=== PATIENT | male | born 1965 | race Two or more races ===

== ENCOUNTER 2024-03-03 13:32 | Emergency (ER) | payer MEDICAID, OTHER ==
[~2024-03-03] VITALS: Ht 177.8 cm; Wt 86.6 kg
--- NOTE | 2024-03-03 13:47 | ED.PDOC ---
History of Present Illness HPI Comments 58Y M with PMHx HTN presents to ED via EMS for chief complaint dizziness [id number]. Additional symptoms include headache and vomiting. Pt has been having headaches for 3wks. Pt states he has HTN medication at home but stopped taking it in 2023. Pt denies diarrhea, chest pain, and SOB. Pt described dizziness as "the room spinning. BS with EMS 135. No known allergies. Chief Complaint: Dizziness Time Seen by MD: 13:36 Reviewed Notes: Medications, Allergies Allergies: Coded Allergies: NO KNOWN ALLERGIES (Unverified , 03/03/24) Information Source: Patient, Emergency Med Personnel Mode of Arrival: EMS Severity: Moderate Timing: Minutes Duration: Since onset Past Medical History PAST MEDICAL HISTORY: HTN Surgical History: Denies all surgeries Family History Family History: Unknown Social History Smoker: Non-Smoker Alcohol: Denies ETOH Use Drugs: Denies Drug Use Lives In: Home Constitutional: denies: chills, diaphoresis, fatigue, fever, malaise, sweats, weakness, others EENTM: denies: blurred vision, double vision, ear bleeding, ear discharge, ear drainage, ear pain, ear ringing, eye pain, eye redness, hearing loss, mouth pain, mouth swelling, nasal discharge, nose bleeding, nose congestion, nose pain, photophobia, tearing, throat pain, throat swelling, voice changes, others Respiratory: denies: cough, hemoptysis, orthopnea, SOB at rest, shortness of breath, SOB with excertion, stridor, wheezing, others Cardiovascular: denies: chest pain, dizzy spells, diaphoresis, Dyspnea on exertion, edema, irregular heart beat, left arm pain, lightheadedness, palpitations, PND, syncope, others Gastrointestinal: reports: vomiting; denies: abdomen distended, abdominal pain, blood streaked bowels, constipated, diarrhea, dysphagia, difficulty swallowing, hematemesis, melena, nausea, poor appetite, poor fluid intake, rectal bleeding, rectal pain, others Genitourinary: denies: burning, dysuria, flank pain, frequency, hematuria, incontinence, penile discharge, penile sore, pain, testicle pain, testicle swelling, urgency, others Neurological: reports: dizziness, headache; denies: fainting, left sided numbness, left sided weakness, numbness, paresthesia, pre-existing deficit, right sided numbness, right sided weakness, seizure, speech problems, tingling, tremors, weakness, others Musculoskeletal: denies: back pain, gout, joint pain, joint swelling, muscle pain, muscle stiffness, neck pain, others Integumetry: denies: bruises, change in color, change in hair/nails, dryness, laceration, lesions, lumps, rash, wounds, others Allergic/Immunocompromised: denies: Difficulty Healing, Frequent Infections, Hives, Itching, others Hematologic/Lymphatic: denies: anemia, blood clots, easy bleeding, easy bruising, swollen glands, others Endocrine: denies: excessive hunger, excessive sweating, excessive thirst, excessive urination, flushing, intolerance to cold, intolerance to heat, unexplained weight gain, unexplained weight loss, others Psychiatric: denies: anxiety, bipolar disorder, depression, hopeless, panic disorder, schizophrenia, sleepless, suicidal, others All Other Systems: Reviewed and Negative Physical Exam General Appearance: No Apparent Distress, Normal HEENT: Normal ENT Inspection, Pharynx Normal, TMs Normal Neck: Full Range of Motion, Non-Tender, Normal, Normal Inspection Respiratory: Chest Non-Tender, Lungs Clear, No Accessory Muscle Use, No Respiratory Distress, Normal Breath Sounds Cardiovascular: No Edema, No JVD, No Murmur, No Gallop, Normal Peripheral Pulses, Regular Rate/Rhythm Breast Exam: Deferred Gastrointestinal: No Organomegaly, Non Tender, No Pulsatile Mass, Normal Bowel Sounds, Soft Genitalia: Deferred Pelvic: Deferred Rectal: Deferred Extremities: No calf tenderness, Normal capillary refill, Normal inspection, N ormal range of motion, Non-tender, No pedal edema Musculoskeletal : Apperance: Normal Neurologic: Alert, materials assistant II-XII nml as Tested, No Motor Deficits, Normal Affect, Normal Mood, No Sensory Deficits Cerebellar Function: NOT DONE Reflexes: NOT DONE Skin: Dry, Normal Color, Warm Lymphatic: No Adenopathy Was a procedure done? Was a procedure done?: No Differential Dx Considerations may include: CVA, posterior circulation stroke, vertigo, ACS, electrolyte abnormality X-Ray, Labs, Meds, VS Vital Signs Date Time Temp Pulse Resp B/P (MAP) Pulse Ox O2 Delivery O2 Flow Rate FiO2 03/03/24 16:10 86 16 97 Room Air* 0 21 03/03/24 15:55 97.7 89 18 155/97 (116) 96 97.7 03/03/24 13:45 61 03/03/24 13:40 97.9 60 16 161/92 (115) 96 Lab Test 03/03/24 15:50 03/03/24 14:15 Range/Units Troponin I High Sensitivity 3 L 4 </=54 ng/L White Blood Count 9.8 4.4-10.8 10^3/uL Red Blood Count 5.31 4.5-5.90 10^6/uL Hemoglobin 12.2 L 13.5-17.5 g/dL Hematocrit 38.8 L 41.0-53.0 % Mean Corpuscular Volume 73.1 L 80.0-100.0 fL Mean Corpuscular Hemoglobin 23.0 L 28.0-32.0 pg Mean Corpuscular Hemoglobin Concent 31.5 L 32.0-36.0 g/dL Red Cell Distribution Width 16.4 H 11.8-14.3 % Platelet Count 413 140-450 10^3/uL Mean Platelet Volume 7.5 6.9-10.8 fL Neutrophils (%) (Auto) 77.2 37.0-80.0 % Lymphocytes (%) (Auto) 13.7 10.0-50.0 % Monocytes (%) (Auto) 7.7 0.0-12.0 % Eosinophils (%) (Auto) 1.0 0.0-7.0 % Basophils (%) (Auto) 0.4 0.0-2.0 % Neutrophils # (Auto) 7.6 1.6-8.6 10 ^3/uL Lymphocytes # (Auto) 1.3 0.4-5.4 10 ^3/uL Monocytes # (Auto) 0.8 0-1.3 10 ^3/uL Eosinophils # (Auto) 0.1 0-0.8 10 ^3/uL Basophils # (Auto) 0 0-0.2 10 ^3/uL Nucleated Red Blood Cells 0.0 % Sodium Level 137 136-145 mmol/L Potassium Level 3.6 3.5-5.1 mmol/L Chloride Level 103 98-107 mmol/L Carbon Dioxide Level 24 20-31 mmol/L Anion Gap 10 5-15 Blood Urea Nitrogen 14 9-23 mg/dL Creatinine 0.90 0.700-1.30 mg/dL Glomerular Filtration Rate Calc 100 >90 mL/min BUN/Creatinine Ratio 15.6 10.0-20.0 Serum Glucose 101 74-106 mg/dL Calcium Level 9.9 8.7-10.4 mg/dL Current Medications Medications (Trade) Dose Ordered Sig/Ej Route Start Time Stop Time Status Last Admin Sodium Chloride 1,000 ml @ 1,000 mls/hr Q1H ONCE IV 03/03/24 14:00 03/03/24 14:59 DC 03/03/24 16:06 Metoclopramide HCl (Reglan Injection) 10 mg ONCE ONCE IV 03/03/24 14:00 03/03/24 14:01 DC 03/03/24 16:[address] [address] Ph: [phone] DIAGNOSTIC IMAGING Diagnostic Imaging Report : [id number] Signed PATIENT: LETICIA CLEMENTE ACCT: [id number] UNIT: [id number] : 1965 LOC: ER ROOM / BED: / AGE / SEX: 58 / M ADM STATUS: REG ER SERVICE 1349 ORDERING PHYSICIAN: GUY WING MD PROCEDURE(s): CXRP - CHEST PORTABLE REASON: dizziness ORDER NUMBER(s): [id number], ACCESSION NUMBER(s): [id number] CHEST RADIOGRAPH Indication: dizziness Technique: Single frontal view of the chest was obtained Comparison: None FINDINGS: Lines and Tubes: None Lungs: No focal consolidation. Pleura: No effusion. No pneumothorax. Cardiomediastinal contours: Unremarkable cardiac lucency which may represent a hiatal hernia. Bones: No acute osseous abnormality. IMPRESSION: No acute cardiopulmonary disease. Retrocardiac lucency which may represent a hiatal hernia. Recommend clinical correlation. ATED BY: SHIRA STERLING DO DICTATED DATE/TIME: 03/03/241458 SIGNED BY: SHIRA STERLING DO SIGNED DATE/TIME: 03/03/24 145 CC: [address] [address] Ph: [phone] DIAGNOSTIC IMAGING Diagnostic Imaging Report : [id number] Signed PATIENT: LETICIA CLEMENTE ACCT: [id number] UNIT: [id number] : 1965 LOC: ER ROOM / BED: / AGE / SEX: 58 / M ADM STATUS: REG ER SERVICE 1349 ORDERING PHYSICIAN: GUY WING MD PROCEDURE(s): HWOCT - HEAD WITHOUT CONTRAST REASON: dizziness ORDER NUMBER(s): [id number], ACCESSION NUMBER(s): [id number] EXAM: CT HEAD WITHOUT CONTRAST INDICATION: dizziness TECHNIQUE: CT of the head without intravenous contrast. Radiation Dose Information: CT Dose: CTDI volume is 53.94 mGy. Dose-length product is 1082.25 mGy*cm The dose indicators for CT are the volume Computed Tomography (CT) Dose Index (CTDIvol) and the Dose Length Product (DLP), and are measured in units of mGy and mGy-cm, respectively. These indicators are not patient dose, but values generated from the CT scanner acquisition factors. The report includes radiation exposure data for exposures received during this examination. COMPARISON: None FINDINGS: There is no evidence of acute intracranial hemorrhage, extra-axial collection, mass effect, midline shift, herniation or hydrocephalus. The ventricles, sulci and cisterns are age appropriate. The matos-white differentiation is intact. Patchy periventricular and subcortical white matter hypoattenuation is nonspecific but may be related to small vessel ischemic disease. Small inclusion cysts left maxillary sinus and mastoid air cells are clear. The surrounding soft tissues and osseous structures are unremarkable. IMPRESSION: 1. No acute intracranial hemorrhage. 2. CT findings of territorial ischemia. ATED BY: MARTINA MAHAN Jr., DO DICTATED DATE/TIME: 03/03/241439 SIGNED BY: MARTINA MAHAN Jr., SIGNED DATE/TIME: 03/03/241439 CC: Time of 1ST Reevaluation: 14:06 Reevaluation 1ST: Unchanged Patient Education/Counseling: Diagnosis, Treatment Family Education/Counseling: No Family Present Departure 1 Departure Time of Disposition: 17:39 (Patient with signs concerning for vertigo versus CVA. Labs are benign. CT brain is concerning for territorial ischemia. Consulted Neurology and we will admit patient for MRI and further workup. Unfortunately patient is out of the window of tPA.) Impression: Primary Impression: Dizziness Additional Impression: Abnormal head CT Disposition: ADMITTED INPATIENT Admit to: Med Surg Condition: Guarded Critical Care Note Critical Care Time?: Yes Critical care comment: Concern for CVA Authorized and Performed by: Guy Wing MD Total critical care time: Approximately 32 minutes Due to a high probability of clinically significant, life threatening deterioration, the patient required my highest level of preparedness to intervene emergently and I personally spent this critical care time directly and personally managing the patient. This critical care time included obtaining a history; examining the patient; pulse oximetry; ordering and review of studies; arranging urgent treatment with development of a management plan; evaluation of patient's response to treatment; frequent reassessment; and, discussions with other providers. This critical care time was performed to assess and manage the high probability of imminent, life-threatening deterioration that could result in multi-organ failure. It was exclusive of separately billable procedures and treating other patients and teaching time. Please see my other sections and the rest of the note for further information on patient assessment and treatment. Stability Stability form required: No I personally scribed for GUY WING MD ([facility] on 03/03/24 at 13:47. Electronically submitted by Mara Galvan ([facility]). I personally scribed for GUY WING MD ([email or web address]) on 03/03/24 at 16:27. Electronically submitted by Mara Galvan ([facility]). GUY WING MD Mar 03, 2024 13:47
[2024-03-03 14:38] LABS: Basophils # (auto) 0 10 ^3/uL (0-0.2); Eosinophils # (auto) 0.1 10 ^3/uL (0-0.8); Hemoglobin 12.2 g/dL (13.5-17.5); Monocytes # (auto) 0.8 10 ^3/uL (0-1.3)
[2024-03-03 14:40] LABS: Basophils % (auto) 0.4 % (0.0-2.0); Hematocrit 38.8 % (41.0-53.0); Lymphocytes # (auto) 1.3 10 ^3/uL (0.4-5.4); Lymphocytes % (auto) 13.7 % (10.0-50.0); Mean Corpuscular Hgb Conc. 31.5 g/dL (32.0-36.0); Mean Corpuscular Volume 73.1 fL (80.0-100.0); Monocytes % (auto) 7.7 % (0.0-12.0); Neutrophils # (auto) 7.6 10 ^3/uL (1.6-8.6); Neutrophils % (auto) 77.2 % (37.0-80.0); Platelet Count (auto) 413 10^3/uL (140-450); Red Blood Cells 5.31 10^6/uL (4.5-5.90); Red Cell Distribution Width 16.4 % (11.8-14.3); White Blood Cell 9.8 10^3/uL (4.4-10.8)
--- NOTE | 2024-03-03 14:42 | DVH ---
EXAM: CT HEAD WITHOUT CONTRAST INDICATION: dizziness TECHNIQUE: CT of the head without intravenous contrast. Radiation Dose Information: CT Dose: CTDI volume is 53.94 mGy. Dose-length product is 1082.25 mGy*cm The dose indicators for CT are the volume Computed Tomography (CT) Dose Index (CTDIvol) and the Dose Length Product (DLP), and are measured in units of mGy and mGy-cm, respectively. These indicators are not patient dose, but values generated from the CT scanner acquisition factors. The report includes radiation exposure data for exposures received during this examination. COMPARISON: None FINDINGS: There is no evidence of acute intracranial hemorrhage, extra-axial collection, mass effect, midline s hift, herniation or hydrocephalus. The ventricles, sulci and cisterns are age appropriate. The matos-white differentiation is intact. Patchy periventricular and subcortical white matter hypoattenuation is nonspecific but may be related to small vessel ischemic disease. Small inclusion cysts left maxillary sinus and mastoid air cells are clear. The surrounding soft tissues and osseous structures are unremarkable. IMPRESSION: 1. No acute intracranial hemorrhage. 2. CT findings of territorial ischemia.
[2024-03-03 14:46] LABS: Chloride 103 mmol/L (98-107); Potassium 3.6 mmol/L (3.5-5.1); Sodium 137 mmol/L (136-145)
[2024-03-03 14:47] LABS: Anion Gap 10 (5-15); Calcium 9.9 mg/dL (8.7-10.4); Carbon Dioxide 24 mmol/L (20-31)
[2024-03-03 14:52] LABS: BUN/Creatinine Ratio 15.6 (10.0-20.0); Blood Urea Nitrogen 14 mg/dL (9-23); Glucose 101 mg/dL (74-106)
--- NOTE | 2024-03-03 15:01 | DVH ---
CHEST RADIOGRAPH Indication: dizziness Technique: Single frontal view of the chest was obtained Comparison: None FINDINGS: Lines and Tubes: None Lungs: No focal consolidation. Pleura: No effusion. No pneumothorax. Cardiomediastinal contours: Unremarkable cardiac lucency which may represent a hiatal hernia. Bones: No acute osseous abnormality. IMPRESSION: No acute cardiopulmonary disease. Retrocardiac lucency which may represent a hiatal hernia. Recommend clinical correlation.
[2024-03-03] MEDS: SODIUM CHLORIDE 0.9% 1,000 ML IV ONE (16:06)
[2024-03-03] MEDS: METOCLOPRAMIDE HCL 5MG/ml INJ 2ml VIAL IV ONE (16:06)
[2024-03-03 16:10] VITALS: PULSE 86; RESP 16; O2SAT 97
[2024-03-03 17:20] VITALS: PULSE 60; RESP 18; O2SAT 98
[2024-03-03] MEDS ORDERED: ONDANSETRON HCL 4 MG/2 ML VIAL IV PRN (18:00)
[2024-03-03] MEDS ORDERED: ZOLPIDEM TARTRATE 5 MG TAB PO PRN (18:00)
[2024-03-03] MEDS ORDERED: MECLIZINE HCL 25 MG TAB PO PRN (18:00)
[2024-03-03] MEDS ORDERED: LORazepam 0.5 MG TAB PO PRN (18:00)
[2024-03-03] MEDS ORDERED: ACETAMINOPHEN 325 MG TAB PO PRN (18:00)
--- NOTE | 2024-03-03 18:01 | DVHHP2 ---
History of Present Illness Reason for Visit: Dizziness History of Present Illness 58-year-old obese patient with a past medical history of hypertension comes to the ED with complaints of dizziness patient states that the symptoms include headache nausea vomiting patient has been having headaches for the past 3 weeks states that he normally takes medication to manage his blood pressure but has not taken the medication since November patient describes the dizziness as the room spinning initial evaluation in the ED involved CT scan evaluation patient was recommended for admission further evaluation as per ED Cardiovascular: HTN COBBLER SOLE: Vertigo Review of Systems Constitutional: Yes: Weakness; No: Fever, Chills, Sweats, Malaise, Other Eyes: No: Pain, Vision change, Conjunctivae inflammation, Eyelid inflammation, Other, Redness ENT: No: Ear pain, Ear discharge, Nose pain, Nose discharge, Nose congestion, Mouth pain, Mouth swelling, Throat pain, Throat swelling, Other Respiratory: No: Cough, Dry, Shortness of breath, SOB with excertion, Wheezing, Hemoptysis, Pleuritic Pain, Sputum, Wheezing, Other Cardiovascular: No: Chest Pain, Palpitations, Orthopnea, Paroxysmal Noc. Dyspnea, Edema, Lt Headedness, Other Gastrointestinal: No: Nausea, Vomiting, Abdominal Pain, Diarrhea, Constipation, Melena, Hematochezia, Other Genitourinary: No Dysuria, No Frequency, No Incontinence, No Hematuria, No Retention, No Other Musculoskeletal: No: other, neck pain, shoulder pain, arm pain, back pain, hand pain, leg pain, foot pain Skin: No: Rash, Lesions, Jaundice, Bruising, Other Neurological: Weakness, Incoordination; No: Numbness, Change in speech, Confusion, Seizures, Other Allergies: Coded Allergies: NO KNOWN ALLERGIES (Unverified , 03/03/24) Exam Vital Signs Vital Signs Date Time Temp Pulse Resp B/P (MAP) Pulse Ox O2 Delivery O2 Flow Rate FiO2 03/03/24 17:20 97.9 60 18 177/89 (118) 98 97.9 03/03/24 17:20 Room Air* 0 21 General Appearance: Alert, Oriented X3, Cooperative, mild distress HEENT: Atraumatic, PERRLA Respiratory: Clear to auscultation Cardiovascular: Regular rate, Normal S1, Normal S2 Abdominal: Normal bowel sounds, Soft, No tenderness Extremities: No clubbing, No cyanosis Skin: No rashes, No breakdown Neuro: Normal gait, Normal speech Psych/Mental Status: Mood NL Labs/Xrays Labs Test 03/03/24 15:50 03/03/24 14:15 Range/Units Troponin I High Sensitivity 3 L </=54 ng/L White Blood Count 9.8 4.4-10.8 10^3/uL Red Blood Count 5.31 4.5-5.90 10^6/uL Hemoglobin 12.2 L 13.5-17.5 g/dL Hematocrit 38.8 L 41.0-53.0 % Mean Corpuscular Volume 73.1 L 80.0-100.0 fL Mean Corpuscular Hemoglobin 23.0 L 28.0-32.0 pg Mean Corpuscular Hemoglobin Concent 31.5 L 32.0-36.0 g/dL Red Cell Distribution Width 16.4 H 11.8-14.3 % Platelet Count 413 140-450 10^3/uL Mean Platelet Volume 7.5 6.9-10.8 fL Neutrophils (%) (Auto) 77.2 37.0-80.0 % Lymphocytes (%) (Auto) 13.7 10.0-50.0 % Monocytes (%) (Auto) 7.7 0.0-12.0 % Eosinophils (%) (Auto) 1.0 0.0-7.0 % Basophils (%) (Auto) 0.4 0.0-2.0 % Neutrophils # (Auto) 7.6 1.6-8.6 10 ^3/uL Lymphocytes # (Auto) 1.3 0.4-5.4 10 ^3/uL Monocytes # (Auto) 0.8 0-1.3 10 ^3/uL Eosinophils # (Auto) 0.1 0-0.8 10 ^3/uL Basophils # (Auto) 0 0-0.2 10 ^3/uL Nucleated Red Blood Cells 0.0 % Sodium Level 137 136-145 mmol/L Potassium Level 3.6 3.5-5.1 mmol/L Chloride Level 103 98-107 mmol/L Carbon Dioxide Level 24 20-31 mmol/L Anion Gap 10 5-15 Blood Urea Nitrogen 14 9-23 mg/dL Creatinine 0.90 0.700-1.30 mg/dL Glomerular Filtration Rate Calc 100 >90 mL/min BUN/Creatinine Ratio 15.6 10.0-20.0 Serum Glucose 101 74-106 mg/dL Calcium Level 9.9 8.7-10.4 mg/dL Assessment/Plan Assessment/Plan Admit [facility] Dizziness possibly secondary to hypertensive urgency CT scan shows chronic versus subacute changes possible MRI required Inpatient evaluation for suspected TIA versus subacute stroke Patient with vertigo IV hydration Vertigo management with meclizine p.r.n. t.i.d. P.r.n. medication for management of blood pressure including hydralazine q.6 Neurology consult or evaluation based on inpatient Physicians preference Plan discussed with: Patient My Orders Orders - MAXINE SCHWARZ MD Procedure Category Date Status Time Meclizine Tablet PHA 03/03/24 Verified (Antivert Tablet) 18:00 Hydralazine Hcl PHA 03/03/24 Verified Tablet (Apresoline 18:00 Drug Screen LAB 03/03/24 Verified 17:49 Admit ADMIT 03/03/24 Verified 17:49 Code Status CODE 03/03/24 Verified 17:49 Cardiac DIET 03/03/24 Verified Diet-2gna,Lofat,Lochol Dinner 0.9%Ns 1000 Ml PHA 03/03/24 Verified 18:00 Aspirin Tablet PHA 03/04/24 Verified 10:00 Clopidogrel Bisulfate PHA 03/04/24 Verified (Plavix) 10:00 Lipitor 40mg Hs PHA 03/03/24 Verified Hi-Intensity 22:00 Carvedilol Tablet PHA 03/03/24 Verified (Coreg Tablet) 22:00 Acetaminophen Tablet PHA 03/03/24 Verified (Tylenol Tablet) 18:00 Zolpidem Tartrate PHA 03/03/24 Verified (Ambien) 18:00 Lorazepam Tablet PHA 03/03/24 Verified (Ativan Tablet) 18:00 Docusate Sodium PHA 03/04/24 Verified Capsule (Colace 10:00 Complete Blood Count LAB 03/04/24 Verified 04:00 Basic Metabolic Panel LAB 03/04/24 Verified 04:00 Ondansetron Hcl PHA 03/03/24 Verified (Zofran) 18:00 Electrocardigram EKG 03/03/24 Verified 17:49 Alum & Mag PHA 03/03/24 Verified Hydrox-Simethicone 18:00 Troponin-I Hs LAB 03/03/24 Verified 17:49 Lisinopril Tablet PHA 03/04/24 Verified (Zestril Tablet) 10:00 Cardiac PITA 03/03/24 Verified Rehabilitation - Outpa Notify Md Of Changes PITA 03/03/24 Verified From Base 17:49 Oxygen By Nasal RT 03/03/24 Verified Cannula 17:49 Problem List: (1) TIA (transient ischemic attack) (2) Dizziness (3) Abnormal head CT Date of Service: Mar 03, 2024 Billing Provider: MAXINE SCHWARZ MD Common Visit Codes: [id number] INP/OBS CARE (HIGH) MAXINE SCHWARZ MD Mar 03, 2024 18:01
--- NOTE | 2024-03-03 18:56 | ECG ---
[facility] Test Date: 2024-03-03 Test Time: 13:45:30 Pat Name: LETICIA CLEMENTE Department: ER Room: [address] [place] [address] A Gender: M Cardiac Rn: TAI : 1965 Requested By: GUY WING Order Number: [id number] Reading MD: Eric Meza Measurements Intervals [place] Rate: 61 P: 63 SC: 235 QRS: 36 QRSD: 88 T: 113 QT: 419 QTc: 422 Interpretive Statements Sinus rhythm Prolonged SC interval Nonspecific T abnormalities, lateral leads Electronically Signed On 03-06-2024 16:11:51 PST by Eric Meza Please click the below link to view image of tracing.
--- NOTE | 2024-03-03 19:44 | BSKYNEURO ---
[place] [facility] Note # Demographics Consult Type: Acute Stroke Level 2 (4.5-24 hrs) Patient Location: Emergency Room First Name: LETICIA Last Name: CHYNA Date of : 1965 Age: 58 Gender: Male Facility: [facility] Time of Initial Page (): 03/03/2024, 17:11 Time of Return Call (): 03/03/2024, 17:11 # HPI History: 58 y.o M with Hx of HTN presents with N/V and vertigo with onset at 12PM today. # Scores Time of exam and NIHSS (): 03/03/2024, 18:46 Level of Consciousness 1a: [0] = Alert; keenly responsive LOC Questions 1b: [0] = Answers both questions correctly LOC Commands 1c: [0] = Performs both tasks correctly Best Gaze 2: [0] = Normal Visual 3: [0] = No visual loss Facial Palsy 4: [0] = Normal symmetrical movements Motor Arm Left 5a: [0] = No drift Motor Arm Right 5b: [0] = No drift Motor Leg Left 6a: [0] = No drift Motor Leg Right 6b: [0] = No drift Limb Ataxia 7: [0] = Absent Sensory 8: [0] = Normal Best Language 9: [0] = No aphasia Dysarthria 10: [0] = Normal Extinction and Inattention 11: [0] = No abnormality NIHSS Total: 0 # Data Head CT: negative for acute changes # Assessment Impression: - Vertigo # Plan Thrombolytic/Intervention: NOT IV Thrombolysis or IA Intervention candidate Thrombolytic Exclusion: - > 4.5 hours NIHSS 0 Intraarterial Exclusion: - clinical exam not consistent with presence of large vessel occlusion (LVO), can reconsider if LVO found on vascular imaging Target Blood Pressure: SBP < 180 Labs: - lipid panel Imaging: (urgency: routine): - CT Angiogram Head and CT Angiogram Neck AND call back with results if abnormal - MRI Brain without contrast Therapy/Evaluation: - PT/OT evaluation Medication: meclizine 25mg TID PRN vertigo zofran 4mg TID PRN nausea Other: - If patient has any neurological deterioration please call me back immediately - would not pursue stroke work-up if MRI is negative # Logistics Attestation of consult completion: The patient is located at: [facility]. Facility staff participated in the visit. I performed this telemedicine visit from my offsite office utilizing interactive 2 way audio and visual telecommunication technology. Total time spent in telemedicine encounter: I spent 30 minutes reviewing clinical data and/or imaging, obtaining history, examining the patient, communicating with the onsite care team, and in preparation of this report. # Demographics First Name: LETICIA Last Name[facility] Facility: [facility] Electronically signed at 03/03/2024 19:43 ([place] Time) by DO Kaitlyn Lopez ELIZABETH A DO Mar 03, 2024 19:44
[2024-03-03] MEDS: SODIUM CHLORIDE 0.9% 1,000 ML IV SCH (19:45)
[2024-03-03] MEDS: MAALOX PLUS or MAALOX 30 ML PO ONE (19:49)
[2024-03-03] MEDS: hydrALAZINE HCL 10 MG TAB PO PRN (20:01)
[2024-03-03 21:23] VITALS: PULSE 64; RESP 16; O2SAT 97
[2024-03-04] MEDS: ATORVASTATIN 20 MG TAB PO SCH (00:39)
[2024-03-04] MEDS: CARVEDILOL 3.125 MG TAB PO SCH (00:40)
[2024-03-04 04:00] VITALS: BP 172/87; PULSE 56; RESP 20; TEMP 98.1; O2SAT 97
[2024-03-04 05:39] LABS: Basophils # (auto) 0 10 ^3/uL (0-0.2); Eosinophils # (auto) 0.1 10 ^3/uL (0-0.8); Eosinophils % (auto) 2.4 % (0.0-7.0); Monocytes # (auto) 0.7 10 ^3/uL (0-1.3); Neutrophils # (auto) 3.8 10 ^3/uL (1.6-8.6); Nucleated Red Blood Cells % 0.1 %
[2024-03-04 05:42] LABS: Basophils % (auto) 0.6 % (0.0-2.0); Hematocrit 35.9 % (41.0-53.0); Hemoglobin 11.6 g/dL (13.5-17.5); Lymphocytes # (auto) 1.3 10 ^3/uL (0.4-5.4); Lymphocytes % (auto) 22.2 % (10.0-50.0); Mean Corpuscular Hemoglobin 23.3 pg (28.0-32.0); Mean Corpuscular Hgb Conc. 32.3 g/dL (32.0-36.0); Mean Corpuscular Volume 72.3 fL (80.0-100.0); Monocytes % (auto) 12.1 % (0.0-12.0); Neutrophils % (auto) 62.7 % (37.0-80.0); Platelet Count (auto) 385 10^3/uL (140-450); Red Blood Cells 4.96 10^6/uL (4.5-5.90); Red Cell Distribution Width 16.2 % (11.8-14.3)
[2024-03-04 05:47] LABS: Anion Gap 10 (5-15); Carbon Dioxide 25 mmol/L (20-31); Chloride 105 mmol/L (98-107); Potassium 3.5 mmol/L (3.5-5.1); Sodium 140 mmol/L (136-145)
[2024-03-04 05:48] LABS: Calcium 9.7 mg/dL (8.7-10.4)
[2024-03-04 05:53] LABS: BUN/Creatinine Ratio 12.5 (10.0-20.0); Blood Urea Nitrogen 10 mg/dL (9-23); Glucose 90 mg/dL (74-106)
[2024-03-04 08:00] VITALS: BP 189/88; PULSE 59; RESP 20; TEMP 98; O2SAT 97
[2024-03-04] MEDS: ASPirin 81 mg TAB PO SCH (09:01)
[2024-03-04] MEDS: CLOPIDOGREL BISULFATE 75 MG TAB PO SCH (09:02)
[2024-03-04] MEDS: LISINOPRIL 5 MG TAB PO SCH (09:03)
[2024-03-04] MEDS: DOCUSATE SOD 100 MG CAP PO SCH (09:05)
[2024-03-04 12:48] VITALS: BP 185/89; PULSE 59; RESP 17; O2SAT 98
[2024-03-04] MEDS: hydrALAZINE HCL 20 MG/ML VL IV ONE (17:13)
[2024-03-04 17:35] VITALS: BP 144/77; PULSE 66; RESP 20; TEMP 97.3; O2SAT 97
[2024-03-04] MEDS ORDERED: ZOFR4T PO (18:17)
[2024-03-04] MEDS ORDERED: NIFE1TAB36 PO (18:17)
[2024-03-04] MEDS ORDERED: HYDR-2792 PO (18:17)
[2024-03-04] MEDS ORDERED: LISI-706 PO (18:17)
[2024-03-04] MEDS ORDERED: MECL1TAB42 PO (18:17)
--- NOTE | 2024-03-04 18:22 | DVHDS2 ---
Discharge Summary Date of Admission Mar 03, 2024 at 17:49 Date of Discharge: Mar 04, 2024 Labs/Diagnostic Data: Laboratory Results Test 03/04/24 05:04 03/03/24 18:30 White Blood Count 6.0 10^3/uL (4.4-10.8) Red Blood Count 4.96 10^6/uL (4.5-5.90) Hemoglobin 11.6 g/dL (13.5-17.5) Hematocrit 35.9 % (41.0-53.0) Mean Corpuscular Volume 72.3 fL (80.0-100.0) Mean Corpuscular Hemoglobin 23.3 pg (28.0-32.0) Mean Corpuscular Hemoglobin Concent 32.3 g/dL (32.0-36.0) Red Cell Distribution Width 16.2 % (11.8-14.3) Platelet Count 385 10^3/uL (140-450) Mean Platelet Volume 7.5 fL (6.9-10.8) Neutrophils (%) (Auto) 62.7 % (37.0-80.0) Lymphocytes (%) (Auto) 22.2 % (10.0-50.0) Monocytes (%) (Auto) 12.1 % (0.0-12.0) Eosinophils (%) (Auto) 2.4 % (0.0-7.0) Basophils (%) (Auto) 0.6 % (0.0-2.0) Neutrophils # (Auto) 3.8 10 ^3/uL (1.6-8.6) Lymphocytes # (Auto) 1.3 10 ^3/uL (0.4-5.4) Monocytes # (Auto) 0.7 10 ^3/uL (0-1.3) Eosinophils # (Auto) 0.1 10 ^3/uL (0-0.8) Basophils # (Auto) 0 10 ^3/uL (0-0.2) Nucleated Red Blood Cells 0.1 % Sodium Level 140 mmol/L (136-145) Potassium Level 3.5 mmol/L (3.5-5.1) Chloride Level 105 mmol/L (98-107) Carbon Dioxide Level 25 mmol/L (20-31) Anion Gap 10 (5-15) Blood Urea Nitrogen 10 mg/dL (9-23) Creatinine 0.80 mg/dL (0.700-1.30) Glomerular Filtration Rate Calc 104 mL/min (>90) BUN/Creatinine Ratio 12.5 (10.0-20.0) Serum Glucose 90 mg/dL (74-106) Calcium Level 9.7 mg/dL (8.7-10.4) Troponin I High Sensitivity 4 ng/L (</=54) Other Laboratory Tests 03/04/24 05:04 Brief Hx & Hospital Course: 58-year-old male with past medical history of hypertension, presenting with chief complaint of dizziness. Prior to admit patient had consumed cranberry juice after which he started to have recurrent and intractable nausea and vomiting, nonbloody nonbilious. He endorses having chills but no fevers. Patient had abdominal discomfort from vomiting but no acute onset or intractable abdominal pain. He had p.o. intolerance and multiple episodes of emesis. Hours after suffering from these episodes patient is started to have rule out less headaches and dizziness. His dizziness was significant and led to him having to sit down on the floor. He denies loss of consciousness, tongue biting/bowel or bladder loss. ED vital signs are normal with mildly elevated blood pressures. CT head negative for any acute process. CXR unconcerning. Labs show microcytic anemia, he does not have a PCP and has not had his routine colonoscopy. Troponins negative BNP without any electrolyte imbalance. Patient improves with IV fluids and antiemetics. Blood pressure control with p.r.n. IV and p.o.. Vital signs stable, patient tolerating p.o. and ambulating stable for discharge per plan below. Diagnosis: volume depletion mediated dizziness, stroke ruled-out; HTN urgency. Discharge plan: - continue prinzide 20/12.5 daily - start procardia 30 qday - use hydralazine 10mg as needed for sBP>170, use upto x3 (1hr apart). if use >3 and still evelated, return to ED. - meclizine as needed for dizziness. zofran as needed for nausea. - if stroke symptoms develop, return to ED (FAST mnemonic) - get setup with PCP. follow-up with PCP for discharge review - f/u with [facility] clinic. bring BP dairy (daily AM BP recordings) Visitation and planning required 35 minutes Condition at Discharge: Fair Final Diagnosis/Problems List volume depletion mediated dizziness, stroke ruled-out; HTN urgency; Discharge Disposition: Home Discharge Instruct/Medications Diet: Regular Activity: No Restrictions, As Tolerated Follow Up/Referral: [facility] Medications: as below Discharge Statement: "Patient was advised to return to the ER or call 911 if any headaches, dizziness, shortness of breath, chest pain, abdominal pain, bleeding, fevers, or worsening of medical condition. Patient was counseled about treatment plan, medications, possible side effects, patientverbalized understanding. All questions were answered to the best of my ability. This discharge took greater then 30 minutes in planning, reviewing documentation, counseling the patient, and discussing with other team members." ASSESSMENT ASSESSMENT Assessment volume depletion mediated dizziness, stroke ruled-out; HTN urgency; Date of Service: Mar 04, 2024 Billing Provider: ANKITA MOODY MD Common Visit Codes: 47731-PJU/OBS DISCH DAY >30min ANKITA MOODY MD Mar 04, 2024 18:22
[2024-03-04] MEDS ORDERED: NIFEdipine 10 MG CAP PO SCH (22:00)
== END 2024-03-04 19:03 | disposition home or self-care (01) ==
LOC: ER 13:32 → EDBD 13:32 → OVERFLOW 17:49 → UNDOADMIN 17:49 → ER 17:57
DX: R42 Dizziness and giddiness (principal); I10 Essential (primary) hypertension; R51.9 Headache, unspecified
CPT/HCPCS: 36415; 70450; 71045; 80048; 84484; 85025; 93005; 96361; 96374; 96375; 99285; J0360; J2765; J7030; 99291; G0378